=== PATIENT | male | born 1980 | race Caucasian/White ===

== ENCOUNTER 2023-01-09 19:59 | Emergency (ER) | payer MEDICAID ==
[~2023-01-09] VITALS: Ht 157.5 cm; Wt 129.3 kg
[2023-01-09 20:17] VITALS: BP 116/78; PULSE 82; RESP 18; TEMP 97.9; O2SAT 97
[2023-01-10] MEDS ORDERED: IBUPROFEN 600 MG TAB PO ONE
[2023-01-10] MEDS ORDERED: IBUP-2213 PO (00:02)
== END 2023-01-10 00:20 | disposition home or self-care (01) ==
LOC: MED 19:59
DX: S90.112A Contusion of left great toe without damage to nail, initial encounter (principal); X58.XXXA Exposure to other specified factors, initial encounter; Y93.89 Activity, other specified; Y92.89 Other specified places as the place of occurrence of the external cause; Y99.8 Other external cause status
CPT/HCPCS: 73630; 99283